=== PATIENT | male | born 1970 | race Caucasian/White ===

== ENCOUNTER 2017-12-14 06:57 | Inpatient (IN) | payer BC, OTHER ==
[~2017-12-14] VITALS: Ht 175.3 cm; Wt 93.6 kg
[2017-12-14] VITALS (16 sets, daily range): BP systolic 133–156; BP diastolic 78–101
--- NOTE | ~2017-12-14 | EKG ---
[address] [address] [facility] [place] [address] ELECTROCARDIOGRAM REPORT Name: MIGUELITO GARCIAS Room #: 246-P ADM IN M.R.#: [id number] Admission: 12/14/17 Attend Phys: Joshua Bonds MD, Discharge: Date of : 70 Report #: [id number] THIS REPORT FOR: //name// [facility] Test Date: 2017-12-16 Test Time: 06:15:29 Pat Name: MIGUELITO GARCIAS Department: Room: 246 P Gender: M Contract Associate: jlmaddison : 1970 Requested By: Jordyn Rodriguez Order Number: [id number] MD: Joby Vasquez Measurements Intervals [place] Rate: 99 P: 27 NV: 138 QRS: 57 QRSD: 104 T: -4 QT: 345 QTc: 443 Interpretive Statements Sinus rhythm Borderline low voltage, extremity leads Nonspecific ST segment abnormalities Compared to ECG 12/15/2017 06:18:01 ST (T wave) deviation now present Atrial premature complex(es) no longer present Electronically Signed On 12-16-2017 12:24:35 CONTROL SPECIALIST by Joby Vasquez [email or web address] <ELECTRONICALLY SIGNED> By: Joby Vasquez MD 12/16/17 1224 4 Joby Vasquez MD /EPI
--- NOTE | ~2017-12-14 | HC ---
[facility] [place] [address] CONSULTATION Name: MIGUELITO GARCIAS Room #: 215-P [facility] IN M.R.#: [id number] Admission: 12/14/17 Attend Phys: Joshua Bonds MD, Discharge: 12/19/17 Date of : 70 Report #: [id number] THIS REPORT FOR: //name// CC: MASON [place] Consultation requested for Dr. Vasquez for medical management and for management of anxiety. The patient's chart reviewed. Discussed with patient. HISTORY OF PRESENT ILLNESS: The patient is a 47-year-old male who was admitted to [facility] with unstable angina, severe 3-vessel coronary artery disease, ischemic cardiomyopathy. On 12/15/2017, he had CABG surgery #4. He is in ICU. He overall is doing well. Complains of pain at surgical incision and chest tube site. Denies any chest pain or shortness of air. The patient with history of anxiety. He takes Xanax at home as needed for anxiety. He reports that he takes 1 mg every 8 hours as needed. The patient stated that at some point he was on Wellbutrin to help him with back pain and to get off narcotics. He has not been on Wellbutrin for some time. PAST MEDICAL HISTORY: History of unstable angina, coronary artery disease, CABG as stated above, ischemic cardiomyopathy, hypertension, hyperlipidemia. MEDICATIONS: Reviewed, please see MAR. ALLERGIES: No known drug allergy. SOCIAL HISTORY: Positive for smoking. REVIEW OF SYSTEMS: Denies any headache or dizziness. Does have anxiety on and off. Takes Xanax here in the hospital, 0.5 mg on as-needed basis; at home 1 mg every 8 hours. Used to take Wellbutrin to help to get off narcotic and to help with back pain and that resolved and he has stopped taking Wellbutrin sometime ago. The patient complains of being and not having good appetite. Did not have bowel movement for several days, but stated no abdominal pain. He just felt like he does not eat well. He denies any pain in the legs. No neurological deficit. PHYSICAL EXAMINATION: GENERAL: The patient is awake, alert. He is not in distress. VITAL SIGNS: Temperature is 36.8, pulse between 110-113, respiration 20, blood pressure 129/63. HEENT: Head normocephalic. NECK: Without bruit. LUNGS: Showed diminished breath sounds at bases posteriorly. [facility] [address] [place] [address] CONSULTATION Name: MIGUELITO GARCIAS Room #: 215-P [facility] IN [facility].#: [id number] Admission: 12/14/17 Attend Phys: Joshua Bonds MD, Discharge: 12/19/17 Date of : 70 Report #: [id number] CARDIAC: S1, S2 normal. Rhythm is regular. ABDOMEN: Soft, nontender. Bowel sounds normoactive. EXTREMITIES: Shows no edema, no calf tenderness. NEUROLOGIC: No motor or sensory deficit. Cranial nerves intact. SKIN: Warm and dry. LABORATORY DATA: White blood cell count 10.5; hemoglobin 10.2; platelet count is 91,000. Sodium 137, potassium 4.2, BUN 18, creatinine 1.2, glucose 124. Creatine kinase yesterday was 1504. IMPRESSION AND PLAN: 1. Coronary artery disease, status post coronary artery bypass graft. 2. Ischemic cardiomyopathy, clinically compensated. 3. Anxiety. Discussed with the patient in length about options. Discussed about restarting Wellbutrin; however, the patient is not interested. He stated that all he wants is Xanax and at an increased dose. I will slightly increase dose to 0.75 mg, but not to 1 mg as the patient also takes pain medication. He will be given every 8 hours on an as-needed basis. 4. Thrombocytopenia. We will monitor platelets. We will check heparin-induced antiplatelet antibody. 5. Constipation. We will order MiraLax p.r.n. Thank you for the consultation. I will be happy to follow the patient along with you. <ELECTRONICALLY SIGNED> By: Vandana Boyer MD 01/14/18 1524 0916 0950 Vandana Boyer MD /nt
--- NOTE | ~2017-12-14 | EKG ---
[address] [address] ELECTROCARDIOGRAM REPORT Name: MIGUELITO GARCIAS Room #: 213-P [facility]..#: [id number] Admission: 12/14/17 Attend Phys: Joshua Bonds MD, Discharge: Date of : 70 Report #: [id number] THIS REPORT FOR: //name// [facility] Test Date: 2017-12-15 Test Time: 06:18:01 Pat Name: MIGUELITO GARCIAS Department: Room: 213 P Gender: M Application Security Consultant: ENRIQUE : 1970 Requested By: Jordyn Rodriguez Order Number: [id number] MD: Sotero Swenson Measurements Intervals [place] Rate: 67 P: 43 [place]: 156 QRS: 59 QRSD: 115 T: 5 QT: 422 QTc: 446 Interpretive Statements Sinus rhythm Atrial premature complex No previous ECG available for comparison Electronically Signed On 12-15-2017 8:36:59 TABULATING MACHINE MECHANIC by Sotero Swenson [email or web address] <ELECTRONICALLY SIGNED> By: Sotero Swenson MD, [facility] 12/15/17 0836 0618 7 Sotero Swenson MD, FAC /EPI
--- NOTE | ~2017-12-14 | EKG ---
[address] [address] [facility] [place] [address] ELECTROCARDIOGRAM REPORT Name: MIGUELITO GARCIAS Room #: 246-P ADM IN M.R.#: [id number] Admission: 12/14/17 Attend Phys: Joshua Bonds MD, Discharge: Date of : 70 Report #: [id number] THIS REPORT FOR: //name// [facility] Test Date: 2017-12-15 Test Time: 16:24:29 Pat Name: MIGUELITO GARCIAS Department: Room: 246 P Gender: M Veterans' Counselor: Vinayak ELLER : 1970 Requested By: Jordyn Rodriguez Order Number: [id number] MD: Joby Vasquez Measurements Intervals [place] Rate: 115 P: 51 [place]: 135 QRS: 76 QRSD: 109 T: -18 QT: 342 QTc: 473 Interpretive Statements Sinus tachycardia Low voltage, extremity leads Compared to ECG 12/15/2017 06:18:01 Low QRS voltage now present Sinus rhythm no longer present Electronically Signed On 12-16-2017 12:22:30 CONFECTIONERY LABORATORY MANAGER by Joby Vasquez [email or web address] <ELECTRONICALLY SIGNED> By: Joby Vasquez MD 12/16/17 1222 1624 1624 Joby Vasuqez MD /[place]
--- NOTE | ~2017-12-14 | CATHLAB ---
[facility] [address] [place] [address] INVASIVE PROCEDURE REPORT Name: MIGUELITO GARCIAS Room #: 246-P [facility] IN ..#: [id number] Admission: 12/14/17 Attend Phys: Joshua Bonds, Discharge: Date of : 70 Date of Service: 12/16/17 1525 Report #: [id number] THIS REPORT FOR: //name// APPROVED REPORT Patient Details Patient Status: Out-Patient Room #: The patient is a 47 year-old male Event Personnel Joshua Bonds Load Out Supervisor, Lolis Bradley, Doug Wells Penny, Wes RN Procedures Performed Art Access - R femoral artery* 81638 Initial Mod Sed Same Phys/QHP Gr5y [id number] 33081 Mod Sed Same Phys/QHP Ea 329336 Aortogram Abdominal Peripheral Angio 906926 Left Heart Cath w/or w/o Coronaries [id number] [facility] Hemostasis w/ Mynx Procedure Narrative The patient was brought electively to the Cardiac Catheterization Laboratory and was prepped and draped in a sterile manner. The Right Groin^ was infiltrated with 1% Lidocaine subcutaneous anesthesia. A PINNACLE 6FR Sheath #[id number] sheath was inserted into the RFA^. Coronary angiography was performed using coronary diagnostic catheters. The right coronary system was accessed and visualized with a JR 4 catheter. The left coronary system was accessed and visualized with a JL 4 catheter. The left ventricle was accessed and visualized with a Pigtail catheter. Left ventriculogram was performed in JANSEN projection. An aortogram of the abdominal aorta was performed. Hemostasis was obtained with manual pressure following sheath removal without any complications. The patient tolerated the procedure well and there were no complications associated with the procedure. There was no hematoma. Intraoperative Conscious Sedation Sedation start time: 09:09 Case end Time: 09:39 Fentanyl 25.0 mcg Versed 2.0 mg Fluoro Time: 1.44 minutes Dose: DAP 3231.70 cGycm2 394 mGy Contrast Type and Amount: Omnipaque 115 ml Hemodynamics [facility] [address] [place] [address] INVASIVE PROCEDURE REPORT Name: MIGUELITO GARCIAS Room #: 246-P [facility] IN ..#: [id number] Admission: 12/14/17 Attend Phys: Joshua Bonds, Discharge: Date of : 70 Date of Service: 12/16/17 1525 Report #: [id number] The aortic pressure is 124/66 mmHg with a mean of 89 mmHg. The left ventricular pressure is 160/14 mmHg with a mean of mmHg. The left ventricular end diastolic pressure is 25 mmHg. Conclusion #1 left main with mild ostial disease of 30% giving rise to LAD circumflex #2 LAD proximally calcified high-grade lesion at the bifurcation of and septal diagonal branch LAD. Diffuse disease in this wraparound LAD #3 moderate diagonal branch has high-grade proximal lesion with mild disease distally #4 the circumflex is nondominant with high-grade subtotal proximal lesion filling a moderate size OM system #5 dominant right is occluded. It is well collateralized via the left system. The PDA appears moderate in size and dominant vessel. #6 normal left ventricular size with inferior basis severely hypokinetic in the mid basilar segment. May be viable with brisk collateral filling of the occluded PDA. #7 abdominal aorta is intact no aneurysm single bilateral renal arteries appear widely patent Recommendations and plan patient is best served with revascularization by bypass surgery. I suspect it good portion of the inferior wall is viable. Excellent targets distal to the lesions are noted No lifting for 48 hours. Patient was transferred to CCU for 6 CV surgical consultation. Hemodynamically stable and pain-free. <ELECTRONICALLY SIGNED> By: Joshua Bonds MD, FACC 12/16/17 1525 1525 1525 Joshua Bonds MD, FACC /INF
[2017-12-14] MEDS ORDERED: XANAX 0.5 MG0.5 MG PO (07:42)
[2017-12-14] MEDS ORDERED: ATORVASTATIN CA40 MG PO (07:43)
[2017-12-14] MEDS ORDERED: ASPIR 8181 M1 PO (07:43)
[2017-12-14] MEDS ORDERED: BUPRENORPHINE HC2 MG PO (07:45)
[2017-12-14] MEDS ORDERED: OMEPRAZOLE 20 M20 M1 PO (07:45)
[2017-12-14] MEDS ORDERED: BYSTOLIC 5 MG5 M1 PO (07:45)
[2017-12-14] MEDS ORDERED: FLONASE 0.05%50 MCG NASAL (07:45)
[2017-12-14] MEDS ORDERED: LYRICA 50 MG50 MG PO (07:47)
[2017-12-14] MEDS ORDERED: SILDENAFIL CIT100 MG PO (07:48)
[2017-12-14 12:29] LABS: CREATININE 1.2 mg/dL (0.7-1.3); POTASSIUM 4.3 mmol/L (3.5-5.1)
[2017-12-14 12:34] LABS: APTT 27.3 Seconds (24.5-32.8)
[2017-12-14 14:50] LABS: ABSOLUTE NEUTROPHILS 4.7 thou/uL (1.4-8.2); BASOPHILS 0.4 % (0.0-2.0); EOSINOPHILS 2.3 % (0.0-3.0); HEMATOCRIT 44.8 % (42.0-52.0); HEMOGLOBIN 15.5 gm/dL (14.0-18.0); LYMPHOCYTES 25.9 % (24.0-44.0); MCH 31.1 pg (26.0-34.0); MCHC 34.5 g/dL (28.0-37.0); PLATELET COUNT 151 thou/uL (150-400); POLYS 64.4 % (36.0-66.0); RBC 4.98 mil/uL (4.50-6.00); RDW 14.1 % (10.5-14.5); WBC 7.3 thou/uL (4.0-11.0)
[2017-12-14 19:17] LABS: URINE BILIRUBIN NEGATIVE (Negative); URINE BLOOD NEGATIVE (Negative); URINE CLARITY CLEAR; URINE COLOR YELLOW; URINE GLUCOSE-RANDOM* NEGATIVE (Negative); URINE KETONES NEGATIVE (Negative); URINE LEUKOCYTES-REFLEX NEGATIVE (Negative); URINE NITRITE-REFLEX NEGATIVE (Negative); URINE PROTEIN (DIPSTICK) NEGATIVE (Negative); URINE UROBILINOGEN 0.2 E.U./dl (0.2-1.0)
[2017-12-15] VITALS (7 sets, daily range): BP systolic 104–157; BP diastolic 74–97
[2017-12-15 04:14] LABS: HEMATOCRIT 44.7 % (42.0-52.0); HEMOGLOBIN 15.3 gm/dL (14.0-18.0); MCH 30.7 pg (26.0-34.0); MCHC 34.3 g/dL (28.0-37.0); MCV 89.6 fL (80.0-100.0); RBC 4.99 mil/uL (4.50-6.00); RDW 14.2 % (10.5-14.5); WBC 6.7 thou/uL (4.0-11.0)
[2017-12-15 14:21] LABS: HEMATOCRIT 29.3 % (42.0-52.0); MCH 31.4 pg (26.0-34.0); MCHC 34.9 g/dL (28.0-37.0); RBC 3.26 mil/uL (4.50-6.00); RDW 13.9 % (10.5-14.5); WBC 8.3 thou/uL (4.0-11.0)
[2017-12-15 14:26] LABS: HEMOGLOBIN 10.2 gm/dL (14.0-18.0)
[2017-12-15 14:40] LABS: APTT 23.9 Seconds (24.5-32.8); FIBRINOGEN 157.8 mg/dL (210-360); INR 1.3; PROTIME 13.1 Seconds (9.3-11.4)
[2017-12-15 15:02] LABS: POC BE -4 mmol/L (-2.0 to +3.0); POC CA IONIZED 4.5 mg/dL (4.5-5.3); POC GLUCOSE 140 mg/dL (70-99); POC HCO3 22.1 mmol/L (22.0-26.0); POC HEMOGLOBIN 11.2 g/dL (14.0-18.0); POC POTASSIUM 4.7 mmol/L (3.5-5.1); POC SODIUM 137 mmol/L (136-145); POC pCO2 41.9 mmHg (35.0-45.0); POC pH 7.331 (7.360-7.450)
[2017-12-15 15:02] LABS: POC BE 1 mmol/L (-2.0 to +3.0); POC CA IONIZED 4.4 mg/dL (4.5-5.3); POC GLUCOSE 144 mg/dL (70-99); POC HCO3 26.4 mmol/L (22.0-26.0); POC HEMOGLOBIN 11.2 g/dL (14.0-18.0); POC POTASSIUM 4.7 mmol/L (3.5-5.1); POC SODIUM 137 mmol/L (136-145); POC pCO2 46.8 mmHg (35.0-45.0); POC pH 7.359 (7.360-7.450)
[2017-12-15 15:02] LABS: POC BE 0 mmol/L (-2.0 to +3.0); POC CA IONIZED 4.5 mg/dL (4.5-5.3); POC GLUCOSE 144 mg/dL (70-99); POC HCO3 25.4 mmol/L (22.0-26.0); POC HEMOGLOBIN 10.9 g/dL (14.0-18.0); POC POTASSIUM 4.7 mmol/L (3.5-5.1); POC SODIUM 138 mmol/L (136-145); POC pCO2 43.5 mmHg (35.0-45.0); POC pH 7.375 (7.360-7.450)
[2017-12-15 15:02] LABS: POC BE 0 mmol/L (-2.0 to +3.0); POC CA IONIZED 4.9 mg/dL (4.5-5.3); POC GLUCOSE 115 mg/dL (70-99); POC HCO3 24.6 mmol/L (22.0-26.0); POC HEMOGLOBIN 13.6 g/dL (14.0-18.0); POC POTASSIUM 4.2 mmol/L (3.5-5.1); POC SODIUM 138 mmol/L (136-145); POC pH 7.409 (7.360-7.450)
[2017-12-15 15:07] LABS: POC BE -1 mmol/L (-2.0 to +3.0); POC CA IONIZED 4.9 mg/dL (4.5-5.3); POC GLUCOSE 153 mg/dL (70-99); POC HCO3 23.8 mmol/L (22.0-26.0); POC HEMOGLOBIN 13.6 g/dL (14.0-18.0); POC POTASSIUM 4.4 mmol/L (3.5-5.1); POC SODIUM 138 mmol/L (136-145); POC pCO2 40.7 mmHg (35.0-45.0); POC pH 7.374 (7.360-7.450)
[2017-12-15 15:07] LABS: POC BE -4 mmol/L (-2.0 to +3.0); POC CA IONIZED 6.9 mg/dL (4.5-5.3); POC GLUCOSE 121 mg/dL (70-99); POC HCO3 21.3 mmol/L (22.0-26.0); POC HEMOGLOBIN 8.8 g/dL (14.0-18.0); POC POTASSIUM 4.8 mmol/L (3.5-5.1); POC SODIUM 136 mmol/L (136-145); POC pCO2 38.2 mmHg (35.0-45.0); POC pH 7.354 (7.360-7.450)
[2017-12-15 15:07] LABS: POC BE -4 mmol/L (-2.0 to +3.0); POC CA IONIZED 5.8 mg/dL (4.5-5.3); POC GLUCOSE 104 mg/dL (70-99); POC HCO3 21.8 mmol/L (22.0-26.0); POC HEMOGLOBIN 11.2 g/dL (14.0-18.0); POC POTASSIUM 4.4 mmol/L (3.5-5.1); POC SODIUM 139 mmol/L (136-145); POC pCO2 38.9 mmHg (35.0-45.0); POC pH 7.357 (7.360-7.450)
[2017-12-15 15:07] LABS: POC BE -1 mmol/L (-2.0 to +3.0); POC CA IONIZED 4.5 mg/dL (4.5-5.3); POC GLUCOSE 132 mg/dL (70-99); POC HCO3 24.9 mmol/L (22.0-26.0); POC HEMOGLOBIN 9.5 g/dL (14.0-18.0); POC POTASSIUM 5.3 mmol/L (3.5-5.1); POC SODIUM 137 mmol/L (136-145); POC pCO2 43.7 mmHg (35.0-45.0); POC pH 7.364 (7.360-7.450)
[2017-12-15 15:07] LABS: POC BE -1 mmol/L (-2.0 to +3.0); POC CA IONIZED 4.6 mg/dL (4.5-5.3); POC GLUCOSE 135 mg/dL (70-99); POC HCO3 23.4 mmol/L (22.0-26.0); POC HEMOGLOBIN 10.5 g/dL (14.0-18.0); POC POTASSIUM 4.9 mmol/L (3.5-5.1); POC SODIUM 139 mmol/L (136-145); POC pCO2 37.7 mmHg (35.0-45.0)
[2017-12-15 15:07] LABS: POC BE 0 mmol/L (-2.0 to +3.0); POC CA IONIZED 4.5 mg/dL (4.5-5.3); POC GLUCOSE 141 mg/dL (70-99); POC HCO3 24.8 mmol/L (22.0-26.0); POC HEMOGLOBIN 10.5 g/dL (14.0-18.0); POC POTASSIUM 5.1 mmol/L (3.5-5.1); POC SODIUM 138 mmol/L (136-145); POC pCO2 40.2 mmHg (35.0-45.0); POC pH 7.398 (7.360-7.450)
[2017-12-15 15:45] LABS: BE(vivo) -8.2 mmol/L (-2 to +3); HCO3 18.3 mmol/L (22.0-26.0); PCO2 41.1 mmHg (35.0-45.0); pH 7.267 (7.360-7.450); sO2 95.7 % (92.0-98.0)
[2017-12-15 16:09] LABS: HEMATOCRIT 38.3 % (42.0-52.0); MCH 30.5 pg (26.0-34.0); MCHC 33.9 g/dL (28.0-37.0); RBC 4.26 mil/uL (4.50-6.00); RDW 14.1 % (10.5-14.5); WBC 16.7 thou/uL (4.0-11.0)
[2017-12-15 16:13] LABS: CALCIUM 9.5 mg/dL (8.5-10.1); CREATININE 1.3 mg/dL (0.7-1.3); MAGNESIUM 2.6 mg/dL (1.8-2.4)
[2017-12-15 16:25] LABS: APTT 25.1 Seconds (24.5-32.8); INR 1.2; PROTIME 11.6 Seconds (9.3-11.4)
[2017-12-15 19:59] LABS: BE(vivo) -1.8 mmol/L (-2 to +3); HCO3 22.5 mmol/L (22.0-26.0); PCO2 36.9 mmHg (35.0-45.0); PO2 77.7 mmHg (80.0-100.0); pH 7.403 (7.360-7.450); sO2 95.6 % (92.0-98.0)
[2017-12-15 22:20] LABS: BE(vivo) -0.7 mmol/L (-2 to +3); HCO3 23.8 mmol/L (22.0-26.0); PCO2 38.7 mmHg (35.0-45.0); PO2 58.3 mmHg (80.0-100.0); pH 7.406 (7.360-7.450); sO2 90.5 % (92.0-98.0)
[2017-12-16] VITALS (9 sets, daily range): BP systolic 105–138; BP diastolic 63–86
[2017-12-16 05:19] LABS: BE(vivo) -3.4 mmol/L (-2 to +3); HCO3 21.5 mmol/L (22.0-26.0); PO2 59.3 mmHg (80.0-100.0); sO2 90.2 % (92.0-98.0)
[2017-12-16 05:23] LABS: HEMATOCRIT 33.9 % (42.0-52.0); HEMOGLOBIN 11.7 gm/dL (14.0-18.0); MCH 30.9 pg (26.0-34.0); MCHC 34.5 g/dL (28.0-37.0); MCV 89.7 fL (80.0-100.0); RBC 3.78 mil/uL (4.50-6.00); RDW 14.3 % (10.5-14.5); WBC 13.6 thou/uL (4.0-11.0)
[2017-12-16 05:36] LABS: PROTIME 10.7 Seconds (9.3-11.4)
[2017-12-16 05:46] LABS: CALCIUM 8.6 mg/dL (8.5-10.1); CREATININE 1.4 mg/dL (0.7-1.3); POTASSIUM 4.8 mmol/L (3.5-5.1)
[2017-12-17] VITALS (17 sets, daily range): BP systolic 82–136; BP diastolic 49–79
[2017-12-17 05:34] LABS: HEMATOCRIT 28.8 % (42.0-52.0); HEMOGLOBIN 10.2 gm/dL (14.0-18.0); MCH 31.6 pg (26.0-34.0); MCHC 35.3 g/dL (28.0-37.0); MCV 89.6 fL (80.0-100.0); RBC 3.22 mil/uL (4.50-6.00); RDW 14.1 % (10.5-14.5); WBC 10.5 thou/uL (4.0-11.0)
[2017-12-17 05:41] LABS: CALCIUM 8.9 mg/dL (8.5-10.1); CREATININE 1.2 mg/dL (0.7-1.3); POTASSIUM 4.2 mmol/L (3.5-5.1)
[2017-12-18 04:04] VITALS: BP 120/77
[2017-12-18 04:12] LABS: ABSOLUTE NEUTROPHILS 7.3 thou/uL (1.4-8.2); BASOPHILS 0.6 % (0.0-2.0); EOSINOPHILS 0.5 % (0.0-3.0); HEMATOCRIT 26.9 % (42.0-52.0); HEMOGLOBIN 9.4 gm/dL (14.0-18.0); LYMPHOCYTES 9.9 % (24.0-44.0); MCH 31.4 pg (26.0-34.0); MCHC 34.9 g/dL (28.0-37.0); MCV 90.1 fL (80.0-100.0); MONOCYTES 6.6 % (1.0-8.0); PLATELET COUNT 111 thou/uL (150-400); POLYS 82.4 % (36.0-66.0); RBC 2.98 mil/uL (4.50-6.00); WBC 8.8 thou/uL (4.0-11.0)
[2017-12-18 04:21] LABS: CALCIUM 9.1 mg/dL (8.5-10.1); CREATININE 1.2 mg/dL (0.7-1.3); POTASSIUM 4.3 mmol/L (3.5-5.1)
[2017-12-18 04:39] LABS: LARGE PLATELETS FEW
[2017-12-18 08:00] VITALS: BP 115/65
[2017-12-18 12:04] VITALS: BP 97/55
[2017-12-18 16:00] VITALS: BP 114/76
[2017-12-18 19:22] VITALS: BP 108/77
[2017-12-19 04:21] VITALS: BP 100/69
[2017-12-19 07:32] VITALS: BP 93/59
[2017-12-19] MEDS ORDERED: ASA5UEC PO (08:25)
[2017-12-19] MEDS ORDERED: LOPRESSOR50 PO (08:40)
[2017-12-19] MEDS ORDERED: XANAX 0.5 MG0.5 MG PO (10:42)
[2017-12-19 11:05] VITALS: BP 93/59
== END 2017-12-19 17:30 | disposition home or self-care (01) | DRG 234 ==
LOC: CATH 06:57 → 2N 09:19 → CATH 14:54 → ICU 12-15 15:36 → 2N 12-17 18:21 → ENTRNSPT 12-19 16:26 → 2N 12-19 17:30
PROVIDERS: Internal Medicine; Internal Medicine Cardiovascular Disease; Thoracic Surgery (Cardiothoracic Vascular Surgery)
PROC: 03BC3ZZ Excision of Left Radial Artery, Percutaneous Approach (ICD-10-PCS; principal; 2017-12-15)
PROC: 06BQ4ZZ Excision of Left Saphenous Vein, Percutaneous Endoscopic Approach (ICD-10-PCS; principal; 2017-12-15)
PROC: 02100Z9 Bypass Coronary Artery, One Artery from Left Internal Mammary, Open Approach (ICD-10-PCS; principal; 2017-12-15)
PROC: 5A1221Z Performance of Cardiac Output, Continuous (ICD-10-PCS; principal; 2017-12-15)
PROC: 021209W Bypass Coronary Artery, Three Arteries from Aorta with Autologous Venous Tissue, Open Approach (ICD-10-PCS; principal; 2017-12-15)
PROC: B2151ZZ Fluoroscopy of Left Heart using Low Osmolar Contrast (ICD-10-PCS; 2017-12-16)
PROC: B2111ZZ Fluoroscopy of Multiple Coronary Arteries using Low Osmolar Contrast (ICD-10-PCS; 2017-12-16)
PROC: 4A023N7 Measurement of Cardiac Sampling and Pressure, Left Heart, Percutaneous Approach (ICD-10-PCS; 2017-12-16)
DX: I25.110 Atherosclerotic heart disease of native coronary artery with unstable angina pectoris (principal); I10 Essential (primary) hypertension; F17.210 Nicotine dependence, cigarettes, uncomplicated; I25.5 Ischemic cardiomyopathy; E78.5 Hyperlipidemia, unspecified; F41.9 Anxiety disorder, unspecified; K59.00 Constipation, unspecified; D69.6 Thrombocytopenia, unspecified; Z82.49 Family history of ischemic heart disease and other diseases of the circulatory system
CPT/HCPCS: 10078; 10081; 47000; 47001; 47002; 47297; 48888; 50010; 50249; 50409; 50456; 50497; 50668; 51301; 52131; 52190; 52314; 53327; 53358; 54118; 56524; 56525; 56526; 56527; 56528; 56529; 56531; 56534; 56639; 56668; 56760; 56898; 57093; 62110; 62950; 64029; 65002; 65003; 65020; 65043; 65090; 65120; 83006

== ENCOUNTER → 2018-01-03 | Outpatient (CLI) | payer BC, OTHER ==
[~2018-01-03] MED LIST: ASA5UEC PO; ASPIR 8181 M1 PO; ATORVASTATIN CA40 MG PO; BUPRENORPHINE HC2 MG PO; BYSTOLIC 5 MG5 M1 PO; FLONASE 0.05%50 MCG NASAL; LOPRESSOR50 PO; LYRICA 50 MG50 MG PO; OMEPRAZOLE 20 M20 M1 PO; SILDENAFIL CIT100 MG PO; XANAX 0.5 MG0.5 MG PO
== END ==
LOC: RAD 12:39
DX: R09.89 Other specified symptoms and signs involving the circulatory and respiratory systems (principal); Z95.1 Presence of aortocoronary bypass graft